=== PATIENT | male | born 1985 | race Caucasian/White ===

== ENCOUNTER 2018-10-30 14:31 | Emergency (ER) | payer SELFPAY ==
[~2018-10-30] VITALS: Wt 89.0 kg
[2018-10-30 14:35] VITALS: BP 136/81; PULSE 81; RESP 18
[2018-10-30] MEDS ORDERED: PRED20TA PO (15:37)
[2018-10-30] MEDS ORDERED: IBUP-1542 PO (15:37)
[2018-10-30] MEDS ORDERED: ACYC800T5 PO (15:37)
--- NOTE | 2018-10-30 15:38 | ERD ---
ER Documentation Chief Complaint Chief Complaint RIGHT UNDER ARM RASH HPI Patient is a 33-year-old male with no past medical history presents to the ER for concerns of a rash in his right axilla which started yesterday. Patient states he initially had a few lesions however he has had increased lesions today. Patient reports stabbing pain. Patient denies any fevers or chills. Patient states he has been under stress. He denies any new creams, lotions, medications or foods. Patient denies any chest pain, shortness of breath or LOC. Patient does admit to history of chickenpox as a child. ROS All systems reviewed and are negative except as per history of present illness. Medications Home Meds Active Scripts Ibuprofen* (Motrin*) 600 Mg Tab, 600 MG PO Q6, #30 TAB Prov:JOSELINE CLARKE PA-C 10/30/18 Prednisone* (Prednisone*) 20 Mg Tab, 60 MG PO DAILY for 5 Days, TAB Prov:JOSELINE CLARKE PA-C 10/30/18 Acyclovir* (Zovirax*) 800 Mg Tablet, 800 MG PO 5 TIMES DAILY for 7 Days, TAB Prov:JOSELINE CLARKE PA-C 10/30/18 PMhx/Soc Medical and Surgical Hx: pt denies Medical Hx, pt denies Surgical Hx Hx Alcohol Use: No Hx Substance Use: No Hx Tobacco Use: No Smoking Status: Never smoker FmHx Family History: No diabetes Physical Exam Vitals Vital Signs Date Temp Pulse Resp B/P (MAP) Pulse Ox O2 O2 Flow FiO2 Time Delivery Rate 10/30/18 98.1 81 18 136/81 99 14:35 (99) Physical Exam GENERAL: Well-developed, well-nourished male. Appears in no acute distress. Speaking in full sentences. HEAD: Normocephalic, atraumatic. ENT: Moist mucous membranes. No uvula deviation. No kissing tonsils. NECK: Supple. No meningismus. Normal range of motion of the neck. LUNG: Clear to auscultation bilaterally. No rhonchi, wheezing, rales or coarse breath sounds. HEART: Regular rate and rhythm. No murmurs, rubs or gallops. EXTREMITIES: Equal pulses bilaterally. No peripheral clubbing, cyanosis or edema. No unilateral leg swelling. NEUROLOGIC: Alert and oriented. Moving all four extremities without any difficulty. Normal speech. Steady gait. SKIN: Vesicular lesions with erythematous base noted in the right axilla and on the medial aspect of the right arm. No streaking. No warmth. No active bleeding or discharge. Procedures/MDM MEDICAL DECISION MAKING: This is a 33-year-old male who presents ER for concerns of painful rash in his right axilla and right upper arm. Vital signs were reviewed. Patient was af ebrile. Patient is not diabetic. Skin exam is concerning for shingles. Patient will be discharged home with acyclovir, prednisone and ibuprofen. Low suspicion for patient was advised to avoid contact with young children and females. Necrotizing fasciitis, sepsis, gangrene, Manuel-Fermin syndrome, toxic epidural necrolysis, abscess, cellulitis, viral exanthem, anaphylaxis, allergic reaction, allergic contact dermatitis, irritant contact dermatitis, fungal infection, insect bite, impetigo, dermatitis. PRESCRIPTIONS: Prednisone, acyclovir, ibuprofen DISCHARGE: At this time, patient is stable for discharge and outpatient management. I have advised the patient to avoid any new products, creams or possible allergens. I have advised the patient to avoid scratching the lesions. I have instructed the patient to follow-up with his/her primary care physician in 1-2 days. If symp toms persist, patient may need to see a scratch finisher for further examinations and testing. I have instructed the patient to promptly return to the ER at any time for any new or worsening symptoms including increased pain, fever, redness, swelling, warmth, difficulty breathing or vomiting. The patient and/or family expressed understanding of and agreement with this plan. All questions were answered. Home care instructions were provided. Disclaimer: Inadvertent spelling and grammatical errors are likely due to EHR/dictation software use and do not reflect on the overall quality of patient care. Also, please note that the electronic time recorded on this note does not necessarily reflect the actual time of the patient encounter. Departure Diagnosis: Primary Impression: Shingles Herpes zoster complications: without complications Qualified Codes: B02.9 - Zoster without complications Condition: Fair Patient Instructions: Shingles (Herpes Zoster) Referrals: COMMUNITY CLIN[facility] YOU HAVE RECEIVED A MEDICAL SCREENING EXAM AND THE RESULTS INDICATE THAT YOU DO NOT HAVE A CONDITION THAT REQUIRES URGENT TREATMENT IN THE EMERGENCY DEPARTMENT. FURTHER EVALUATION AND TREATMENT OF YOUR CONDITION CAN WAIT UNTIL YOU ARE SEEN IN YOUR DOCTORS OFFICE WITHIN THE NEXT 1-2 DAYS. IT IS YOUR RESPONSIBILITY TO MAKE AN APPOINTMENT FOR FOLOW-UP CARE. IF YOU HAVE A PRIMARY DOCTOR --you should call your primary doctor and schedule an appointment IF YOU DO NOT HAVE A PRIMARY DOCTOR YOU CAN CALL OUR PHYSICIAN REFERRAL HOTLINE AT IF YOU CAN NOT AFFORD TO SEE A PHYSICIAN YOU CAN CHOSE FROM THE FOLLOWING [facility] [address] [facility] [address] [facility] [address] [facility] [address] [facility] [address] [facility]. [facility] [address] [facility]. [facility] YOU HAVE RECEIVED A MEDICAL SCREENING EXAM AND THE RESULTS INDICATE THAT YOU DO NOT HAVE A CONDITION THAT REQUIRES URGENT TREATMENT IN THE EMERGENCY DEPARTMENT. FURTHER EVALUATION AND TREATMENT OF YOUR CONDITION CAN WAIT UNTIL YOU ARE SEEN IN YOUR DOCTORS OFFICE WITHIN THE NEXT 1-2 DAYS. IT IS YOUR RESPONSIBILITY TO MAKE AN APPOINTMENT FOR FOLOW-UP CARE. IF YOU HAVE A PRIMARY DOCTOR --you should call your primary doctor and schedule and appointment IF YOU DO NOT HAVE A PRIMARY DOCTOR YOU CAN CALL OUR PHYSICIAN REFERRAL HOTLINE AT . IF YOU CAN NOT AFFORD TO SEE A PHYSICIAN YOU CAN CHOSE FROM THE FOLLOWING [facility] INSTITUTIONS[facility] [address] [place] [address] [facility] [address] [place] [address] [facility]ED WITH [facility] [address] [place] [address] Additional Instructions: Call your primary care doctor TOMORROW for an appointment during the next 1-2 days.See the doctor sooner or return here if your condition worsens before your appointment time. JOSELINE CLARKE PA-C Oct 30, 2018 15:38
== END 2018-10-30 15:45 | disposition home or self-care (01) ==
LOC: FTE 14:31
DX: B02.9 Zoster without complications (principal)
CPT/HCPCS: 99283